=== PATIENT | female | born 1985 ===

== ENCOUNTER 2017-09-11 13:19 | Emergency (ER) | payer SELFPAY ==
[2017-09-11 13:20] VITALS: BMI 33.3
[2017-09-11 13:46] VITALS: BP 91/56; PULSE 73; RESP 16; TEMP 98.1; O2SAT 100
[2017-09-11] MEDS ORDERED: Sodium Chloride 0.9% 1,000 ML IV STA (14:31)
--- NOTE | 2017-09-11 14:46 | ED PDOC ---
HPI: Abdomen Time Seen by Provider: 09/11/17 14:29 Chief Complaint (Nursing): GI Problem Chief Complaint (Provider): Vomiting History Per: Patient History/Exam Limitations: no limitations Current Symptoms Are (Timing): Still Present Additional Complaint(s): Jailyn is a 31 y/o female, , approximately 16 weeks , who presents to the ED complaining of vomiting and epigastric pain. Patient states she rarely has abdominal pain and denies vaginal bleeding. She has had an ultrasound and care, all within normal limits according to patient. PMD: Lucy Doe Past Medical History Reviewed: Historical Data, Nursing Documentation, Vital Signs Vital Signs: Last Vital Signs Temp 98.1 F 09/11/17 13:41 Pulse 73 09/11/17 13:41 Resp 16 09/11/17 13:41 BP 91/56 L 09/11/17 13:41 Pulse Ox 100 09/11/17 16:54 - Medical History PMH: Denies: Chronic Kidney Disease - Family History Family History: States: Unknown Family Hx - Home Medications Home Medications: Ambulatory Orders Medication Instructions Recorded Ibuprofen [Advil] 100 mg PO PRN PRN 09/29/16 Ibuprofen [Motrin] 400 mg PO Q4 PRN 09/29/16 Calcium Carbonate [Tums] 1 - 2 tab PO Q6 PRN #1 bottle 09/11/17 Ondansetron ODT [Zofran ODT] 4 mg PO Q8 PRN #10 odt 09/11/17 - Allergies Allergies/Adverse Reactions: Allergies Allergy/AdvReac Type Severity Reaction Status Date / Time No Known Allergies Allergy Verified 09/11/17 13:41 Review of Systems ROS Statement: Except As Marked, All Systems Reviewed And Found Negative Gastrointestinal: Positive for: Vomiting, Abdominal Pain Genitourinary Female: Negative for: Vaginal Bleeding Physical Exam - Reviewed Nursing Documentation Reviewed: Yes Vital Signs Reviewed: Yes - Physical Exam Appears: Positive for: Well, Non-toxic, No Acute Distress Gastrointestinal/Abdominal: Positive for: Tenderness (epigastric, (-) RUQ tenderness) Neurologic/Psych: Positive for: Alert, Oriented - Laboratory Results Result Diagrams: 09/11/17 14:50 09/11/17 14:50 - ECG O2 Sat by Pulse Oximetry: 100 (RA) Pulse Ox Interpretation: Normal - Progress ED Course And Treament: ns 1 liter wide open reglan 10 mg i x 1 dose Patient feels improved and is hungry Eating food in ED Medical Decision Making Medical Decision Making: Time: 14:29 Initial Impression: Epigastric Pain Initial Plan: --Blood Type & Screen --Beta-HcG --CMP --Lipase --Magnesium --Urine Dip --CBC --Reglan --Urine Culture --Urinalysis --US OB Time: 16:15 Findings: There is a single living fetus in variable presentation. Anterior placenta. The placenta is not previa. Bilateral ovaries are not visualized. There are no adnexal masses or cysts evident. Cervix length measures approximately 5.1 cm. Measurements and calculations: Fetus has a composite sonographic age of 18 weeks 0 days. This calculation is based on the biparietal diameter, head circumference, abdominal circumference, and femur length. Estimated heart rate 157 beats per min. Impression: Single living fetus with a composite sonographic age of 18 weeks 0 days. Estimated heart rate 157 beats per min. Scribe Attestation: Documented by Ed Lamar, acting as a scribe for Gena Vazquez PA-C Provider Scribe Attestation: All medical record entries made by the Scribe were at my direction and personally dictated by me. I have reviewed the chart and agree that the record accurately reflects my personal performance of the history, physical exam, medical decision making, and the department course for this patient. I have also personally directed, reviewed, and agree with the discharge instructions and disposition. Disposition - Clinical Impression Clinical Impression: Hyperemesis arising during - Patient ED Disposition Is Patient to be Admitted: No - Disposition Disposition: Routine/Home Disposition Time: 16:53 Condition: FAIR Prescriptions: Calcium Carbonate [Tums] 1 - 2 tab PO Q6 PRN #1 bottle PRN Reason: Pain, Moderate (4-7) Ondansetron ODT [Zofran ODT] 4 mg PO Q8 PRN #10 odt PRN Reason: Nausea/Vomiting Instructions: Hyperemesis Gravidarum (ED), Diet for Ulcers and Gastritis (ED) Forms: [facility] (Maldivian) Print Language: TAIWANESE
[2017-09-11 15:08] LABS: BASO % 0.2 % (0.0-2.0); EOS % 0.5 % (0.0-4.0); HEMOGLOBIN 12.2 g/dL (12.0-16.0); LYMPH % 12.6 % (20.0-40.0); MEAN CELL VOLUME 88.5 fl (81.0-99.0); MEAN CORPUSCULAR HEMOGLOBIN 31.4 pg (27.0-31.0); MEAN CORPUSCULAR HGB CONC 35.4 g/dL (33.0-37.0); MEAN PLATELET VOLUME 7.8 fl (7.2-11.7); MONO # 0.5 K/uL (0.0-0.8); MONO % 6.3 % (0.0-10.0); NEUT # 6.5 K/uL (1.8-7.0); NEUT % 80.4 % (50.0-75.0); RBC 3.89 Mil/uL (3.80-5.20); RED CELL DISTRIBUTION WIDTH 12.6 % (11.5-14.5)
[2017-09-11 15:17] LABS: ALB/GLOB RATIO 1.1 (1.0-2.1); ALBUMIN 3.6 g/dL (3.5-5.0); ALT/SGPT 32 U/L (9-52); AST/SGOT 30 U/L (14-36); BLOOD UREA NITROGEN 7 mg/dl (7-17); CALCIUM 9.1 mg/dL (8.4-10.2); GFR AFRICAN-AMERICAN > 60; GFR NON-AFRICAN AMERICAN > 60; MAGNESIUM 1.8 MG/DL (1.6-2.3)
--- NOTE | 2017-09-11 16:17 | US ---
OB , limited Comparison: Transvaginal pelvic ultrasound performed 10/27/16 Technique: Real-time ultrasound was performed through the pelvis. Findings: There is a single living fetus in variable presentation. Anterior placenta. The placenta is not previa. Bilateral ovaries are not visualized. There are no adnexal masses or cysts evident. Cervix length measures approximately 5.1 cm. Measurements and calculations: Fetus has a composite sonographic age of 18 weeks 0 days. This calculation is based on the biparietal diameter, head circumference, abdominal circumference, and femur length. Estimated heart rate 157 beats per min. Impression: Single living fetus with a composite sonographic age of 18 weeks 0 days. Estimated heart rate 157 beats per min.
[2017-09-11 16:49] LABS: SQUAMOUS EPITHIAL 4 /hpf (0-5); URINE BACTERIA RARE (<OCC); URINE BILIRUBIN NEGATIVE (NEGATIVE); URINE BLOOD NEGATIVE (NEGATIVE); URINE CLARITY SLIGHTY-CLOUDY (Clear); URINE COLOR YELLOW (YELLOW); URINE GLUCOSE (UA) NEG (Normal); URINE LEUKOCYTE ESTERASE NEG Leu/uL (Negative); URINE NITRATE NEGATIVE (NEGATIVE); URINE PROTEIN NEGATIVE (NEGATIVE)
== END 2017-09-11 18:44 | disposition home or self-care (01) ==
LOC: H.ER 13:19
DX: O21.0 Mild hyperemesis gravidarum (principal); Z3A.18 18 weeks gestation of pregnancy
CPT/HCPCS: 76815; 80053; 81003; 83690; 83735; 84702; 85025; 86850; 86900; 87086; 96374; 99284; J2765; J7040

== ENCOUNTER 2017-11-14 14:30 | Emergency (ER) | payer SELFPAY ==
[2017-11-14 14:30] VITALS: BMI 33.3
--- NOTE | 2017-11-14 14:51 | ED PDOC ---
HPI: CCC, URI, Sore Throat Time Seen by Provider: 11/14/17 14:44 Chief Complaint (Nursing): ENT Problem Chief Complaint (Provider): left ear pain History Per: Patient Onset/Duration Of Symptoms: Days (x 2) Current Symptoms Are (Timing): Still Present Additional Complaint(s): 32 y/o female, currently 26 weeks , presents to the ED complaining of left ear pain that started yesterday. Patient denies fever, headache, dizziness. No abd pain or vaginal bleeding. PMD: None Past Medical History Reviewed: Historical Data, Nursing Documentation, Vital Signs Vital Signs: Last Vital Signs Temp 98.5 F 11/14/17 14:39 Pulse 68 11/14/17 14:39 Resp 16 11/14/17 14:39 BP 112/76 11/14/17 14:39 Pulse Ox 100 11/14/17 15:06 - Medical History PMH: No Chronic Diseases - Surgical History Surgical History: - Family History Family History: States: No Known Family Hx - Living Arrangements Living Arrangements: With Family - Social History Current smoker - smoking cessation education provided: No Alcohol: None Drugs: Denies - Home Medications Home Medications: Ambulatory Orders Medication Instructions Recorded Ibuprofen [Advil] 100 mg PO PRN PRN 09/29/16 Ibuprofen [Motrin] 400 mg PO Q4 PRN 09/29/16 Calcium Carbonate [Tums] 1 - 2 tab PO Q6 PRN #1 bottle 09/11/17 Ondansetron ODT [Zofran ODT] 4 mg PO Q8 PRN #10 odt 09/11/17 Acetaminophen [Tylenol 325mg tab] 650 mg PO Q4 PRN #1 bottle 11/14/17 Amoxicillin 875 mg PO BID #14 tab 11/14/17 - Allergies Allergies/Adverse Reactions: Allergies Allergy/AdvReac Type Severity Reaction Status Date / Time No Known Allergies Allergy Verified 09/11/17 13:41 Review of Systems ROS Statement: Except As Marked, All Systems Reviewed And Found Negative Constitutional: Negative for: Fever ENT: Positive for: Ear Pain (left) Respiratory: Negative for: Cough Gastrointestinal: Negative for: Nausea, Vomiting, Abdominal Pain, Diarrhea Neurological: Negative for: Headache, Dizziness Physical Exam - Reviewed Nursing Documentation Reviewed: Yes Vital Signs Reviewed: Yes - Physical Exam Appears: Positive for: Well, Non-toxic, No Acute Distress Skin: Positive for: Normal Color, Warm. Negative for: Rash Eye Exam: Positive for: EOMI, PERRL ENT: Positive for: TM Is/Are (Left TM is bulging and erythematous with obscured landmarks, consistent with otitis media, no perforation or rupture, right TM is normal) Cardiovascular/Chest: Positive for: Regular Rate, Rhythm Respiratory: Positive for: Normal Breath Sounds Neurologic/Psych: Positive for: Alert, Oriented - ECG O2 Sat by Pulse Oximetry: 100 (RA) Pulse Ox Interpretation: Normal Medical Decision Making Medical Decision Making: Time: 14:51 Initial Impression: 32 y/o female with otitis media Initial Plan: --Tylenol PO 1 gram given in ED --Patient will be discharged with rx for Tylenol and Amoxicillin. Follow up with PMD/OB. Scribe Attestation: Documented by Ed Lamar, acting as a scribe for Miriam Harrison PA-C. Provider Scribe Attestation: All medical record entries made by the Scribe were at my direction and personally dictated by me. I have reviewed the chart and agree that the record accurately reflects my personal performance of the history, physical exam, medical decision making, and the department course for this patient. I have also personally directed, reviewed, and agree with the discharge instructions and disposition. Disposition - Clinical Impression Clinical Impression: Otitis media - Patient ED Disposition Is Patient to be Admitted: No Counseled Patient/Family Regarding: Diagnosis, Need For Followup, Rx Given - Disposition [facility] Disposition: Routine/Home Disposition Time: 14:47 Condition: STABLE Additional Instructions: Take rx meds as directed. Follow up with clinic. Prescriptions: Acetaminophen [Tylenol 325mg tab] 650 mg PO Q4 PRN #1 bottle PRN Reason: Pain, Moderate (4-7) Amoxicillin 875 mg PO BID #14 tab Instructions: Ear Infections (Otitis Media) Forms: [facility] (Syriac) Print Language: GERMAN
[2017-11-14 14:52] VITALS: BP 112/76; PULSE 68; RESP 16; TEMP 98.5; O2SAT 100
== END 2017-11-14 15:38 | disposition home or self-care (01) ==
LOC: H.ER 14:30
DX: H66.90 Otitis media, unspecified, unspecified ear (principal); Z3A.26 26 weeks gestation of pregnancy

== ENCOUNTER 2017-12-19 21:21 | Observation (INO) | payer SELFPAY ==
[2017-12-19 22:43] VITALS: BMI 34.0
[2017-12-19 23:35] LABS: SQUAMOUS EPITHIAL 7 /hpf (0-5); URINE BACTERIA OCC (<OCC); URINE BILIRUBIN NEGATIVE (NEGATIVE); URINE BLOOD SMALL (NEGATIVE); URINE CLARITY TURBID (Clear); URINE COLOR YELLOW (YELLOW); URINE GLUCOSE (UA) NEG (Normal); URINE LEUKOCYTE ESTERASE LARGE Leu/uL (Negative); URINE PROTEIN 100 mg/dL (NEGATIVE); URINE UROBILINOGEN 0.2-1.0 mg/dL (0.2-1.0); WBC CLUMPS MANY /hpf
[2017-12-20 00:16] LABS: BASO % 0.2 % (0.0-2.0); EOS # 0.1 K/uL (0.0-0.7); EOS % 0.6 % (0.0-4.0); HEMOGLOBIN 11.5 g/dL (12.0-16.0); LYMPH # 1.6 K/uL (1.0-4.3); LYMPH % 12.8 % (20.0-40.0); MEAN CELL VOLUME 89.5 fl (81.0-99.0); MEAN CORPUSCULAR HEMOGLOBIN 31.7 pg (27.0-31.0); MEAN CORPUSCULAR HGB CONC 35.4 g/dL (33.0-37.0); MONO # 0.9 K/uL (0.0-0.8); MONO % 7.4 % (0.0-10.0); NEUT # 10.1 K/uL (1.8-7.0); RBC 3.62 Mil/uL (3.80-5.20); RED CELL DISTRIBUTION WIDTH 12.1 % (11.5-14.5); WHITE BLOOD COUNT 12.7 K/uL (4.8-10.8)
[2017-12-20] MEDS ORDERED: Lactated Ringer's 1,000 ML IV SCH (01:15)
--- NOTE | 2017-12-20 01:21 | CP.PCM.HP ---
<Anibal Stephenson - Last Filed: 12/20/17 01:34> History of Present Illness - History of Present Illness History of Present Illness: Pt is a 32 y/o female with IUP 32.5 wks (CORAL 02/09) presenting with complaints of R. Flank pain x1 day. She describes pain as 10/10 in intensity, constant, sharp, non radiating, and partially alleviated with Motrin. In addition, she also reports frequent urination and mild dysuria for the past 24 hours. Denies fever/chills, n/v, vb, lof, ctx. +FM PNC: CFH. Labs reviewed unremarkable. Plan for repeat C at 39wks OBHx: 1 prior C section in [place] for unreassuring FHR, FT. PMHX: denies Meds: PNV Allergies: NKDA Social: Zay habits x3 [facility] Course: Vitals stable, afebrile Physical exam notable for Suprapubic and R. CVA tenderness Tylenol 650mg po x1 CBC: WBC 12.7 U/A: +Nitrate, Large LES Present on Admission - Present on Admission Any Indicators Present on Admission: No History of DVT/PE: No History of Uncontrolled Diabetes: No Urinary Catheter: No Decubitus Ulcer Present: No Past Patient History - Past Medical History & Family History Past Medical History?: No - Past Social History Smoking Status: Never Smoked - CARDIAC Hx Cardiac Disorders: No - PULMONARY Hx Respiratory Disorders: No - NEUROLOGICAL Hx Neurological Disorder: No - HEENT Hx HEENT Problems: No - RENAL Hx Chronic Kidney Disease: No - ENDOCRINE/METABOLIC Hx Endocrine Disorders: No - HEMATOLOGICAL/ONCOLOGICAL Hx Blood Disorders: No - INTEGUMENTARY Hx Dermatological Problems: No - MUSCULOSKELETAL/RHEUMATOLOGICAL Hx Musculoskeletal Disorders: No - GASTROINTESTINAL Hx Gastrointestinal Disorders: No - GENITOURINARY/GYNECOLOGICAL Hx Genitourinary Disorders: No - PSYCHIATRIC Hx Psychophysiologic Disorder: No Hx Emotional Abuse: No Hx Physical Abuse: No Hx Substance Use: No - SURGICAL HISTORY Hx Surgeries: Yes Hx Section: Yes (x1) - ANESTHESIA Hx Anesthesia: Yes Hx Anesthesia Reactions: No Hx Malignant Hyperthermia: No Meds Allergies/Adverse Reactions: Allergies Allergy/AdvReac Type Severity Reaction Status Date / Time No Known Allergies Allergy Verified 09/11/17 13:41 Physical Exam - Constitutional Appears: Well, Non-toxic Additional comments: Mild distress - ENT Exam ENT Exam: Mucous Membranes Moist - Respiratory Exam Respiratory Exam: Clear to Auscultation Bilateral - Cardiovascular Exam Cardiovascular Exam: REGULAR RHYTHM, +S1, +S2. absent: Systolic Murmur - GI/Abdominal Exam GI & Abdominal Exam: Normal Bowel Sounds, Soft, Tenderness (Suprapubic tenderness). absent: Distended, Guarding, Rigid - Back Exam Back exam: CVA tenderness (R) - Neurological Exam Neurological exam: Alert, Oriented x3 - Psychiatric Exam Psychiatric exam: Normal Affect - Skin Skin Exam: Normal Color Results - Labs Result Diagrams: 12/19/17 23:14 Labs: Laboratory Results - last 24 hr 12/19/17 12/19/17 23:14 23:14 WBC 12.7 H D RBC 3.62 L Hgb 11.5 L Hct 32.4 L MCV 89.5 D MCH 31.7 H MCHC 35.4 RDW 12.1 Plt Count 256 MPV 8.0 Neut % (Auto) 79.0 H Lymph % (Auto) 12.8 L [place] % (Auto) 7.4 Eos % (Auto) 0.6 Baso % (Auto) 0.2 Neut # (Auto) 10.1 H Lymph # (Auto) 1.6 [place] # (Auto) 0.9 H Eos # (Auto) 0.1 Baso # (Auto) 0.0 Urine Color Yellow Urine Clarity Turbid Urine pH 6.0 Ur Specific [place] 1.024 Urine Protein 100 Urine Glucose (UA) Neg Urine Ketones Negative Urine Blood Small Urine Nitrate Positive H Urine Bilirubin Negative Urine Urobilinogen 0.2-1.0 Ur Leukocyte Esterase Large Urine RBC (Auto) 60 H Urine WBC Clumps (Auto) Many H Urine Microscopic WBC 805 H Ur Squamous Epith Cells 7 H Urine Bacteria Occ H Urine Yeast (Budding) Mod H Assessment & Plan - Assessment and Plan (Free Text) Assessment: Pt is a 32 y/o female with IUP 32.5 wks admitted for Pyelonephritis. #Pyelonephritis -Dysuria, R. Flank Pain, R. CVA tenderness -Afebrile -Leukocytosis 12.7, no bandemia -Ceftriaxone 1gm, IVPB 0.9 NS daily -Tylenol 650 po for pain -Notify MD if temp >100.4F -F/U UCx #Diet -Regular Stable Full Code Discussed case with OB Hospitalist, Dr. Knapp <Marc Knapp - Last Filed: 12/20/17 07:18> Results - Vital Signs Recent Vital Signs: Last Vital Signs Temp Pulse 78 12/20/17 01:45 Resp 18 12/20/17 01:45 BP 96/52 L 12/20/17 01:45 Pulse Ox - Labs Result Diagrams: 12/19/17 23:14 Labs: Laboratory Results - last 24 hr 12/19/17 12/19/17 23:14 23:14 WBC 12.7 H D RBC 3.62 L Hgb 11.5 L Hct 32.4 L MCV 89.5 D MCH 31.7 H MCHC 35.4 RDW 12.1 Plt Count 256 MPV 8.0 Neut % (Auto) 79.0 H Lymph % (Auto) 12.8 L [place] % (Auto) 7.4 Eos % (Auto) 0.6 Baso % (Auto) 0.2 Neut # (Auto) 10.1 H Lymph # (Auto) 1.6 [place] # (Auto) 0.9 H Eos # (Auto) 0.1 Baso # (Auto) 0.0 Urine Color Yellow Urine Clarity Turbid Urine pH 6.0 Ur Specific [place] 1.024 Urine Protein 100 Urine Glucose (UA) Neg Urine Ketones Negative Urine Blood Small Urine Nitrate Positive H Urine Bilirubin Negative Urine Urobilinogen 0.2-1.0 Ur Leukocyte Esterase Large Urine RBC (Auto) 60 H Urine WBC Clumps (Auto) Many H Urine Microscopic WBC 805 H Ur Squamous Epith Cells 7 H Urine Bacteria Occ H Urine Yeast (Budding) Mod H Assessment & Plan - Assessment and Plan (Free Text) Plan: With PGY1, I saw and examined this patient. Agree with note. Condition, eval and treatment plan discussed with pt. Her questions answered. - Date & Time Date: 12/20/17 Time: 07:15
[2017-12-20 04:02] VITALS: PULSE 78
--- NOTE | 2017-12-20 07:19 | OBADHP ---
Datetime: 12/19/2017 22:31 Admit Comment, IP Provider: Pt is a 32 y/o female with IUP 32.4 wks (CORAL 02/09) presents to [facility] with complaints of R. Flank pain x1 day. She describes pain as 10/10 in intenstity, constant, sharp, non radiating, and partially alleviated with Motrin. In addition, she also reports frequent urinatio n and mild dysuria for the past 24 hours. Denies fever/chills, n/v, vb, lof, ctx. +FM PNC: CFH. Labs reviewed unremarkable. Plan for repeat C at 39wks OBHx: 1 prior C section in [place] for unreassuring FHR, FT. PMHX: denies Meds: PNV Allergies: NKDA Social: Zay habits x3 Maternal Vitals: BP 107/52, HR 78, Afebrile General: Mild distress noted Cardio: RRR, no murmurs Lungs: CTABL Abdomen: Gravid, +Suprapubic tenderness. +R. Flank tenderness Ext: no edema FHR: 155, reactive, no decels A: IUP 32.4wks with dysuria and R. Flank pain x1 day, exam notable for suprapubic and R. CVA tende rness P: UTI in . CBC, Urinalysis w/ reflex Ucx. Tylenol for pain. Continuous monitoring. Discussed Case with Dr. Ra Warren, PGY1 With PGY1, I saw and examined this patient. Agree with note. Condition, eval and treatment plan discussed with pt. Her questions answered. Extremities - PN: Normal Abdomen - PN: Abnormal Back - PN: Abnormal Lungs - PN: Normal Heart - PN: Normal General - PN: Normal FHR - Baseline A Provider: 155 Comments, ACOG Physical Exam: + R. Flank tenderness +Suprapubic Tenderness Vital Signs Provider: Reviewed; Within Normal Limits IP Chief Complaint: Other EGA AdmitDate IP: 32.4 IP Adm Impression: , intrauterine IP Admit Plan: Observation/Evaluation
--- NOTE | 2017-12-20 12:05 | OBDCSUM ---
Datetime: 12/20/2017 12:05 Discharged to, Provider: Home Follow up at, Provider: clinic Disch Instr Activity: Normal activity Disch Instr Diet: Regular Discharge Instructions, Provider: Routine instructions given Discharge Time: 12/20/2017 12:05 Follow up in weeks, Provider: this week Disch Referrals: None Contraception discussed, Prov: Yes Discharge Diagnosis Prov Other: pyelonephritis
--- NOTE | 2017-12-20 12:05 | OBPN ---
Datetime: 12/20/2017 12:02 FHR - Baseline A Provider: 150 IP Progress Note Comment: Patient evaluated this morning, comfortable, afebrile. Patient has no OB c omplaints, no vaginal bleeding, no leaking, +FM, no ctxns, no dysuria, no flank discomfort. Pt tolera ting PO diet, no vomiting. Will discharge patient home. Script given for augmentin for 10 days and Ma crobid daily for the duration of the . All instructions explained to the patient with her co nfirming she understood. Recommended patient make appt this week in clinic Vital Signs Provider: Reviewed; Within Normal Limits NICHD Variability Prov Fetus A: Moderate 6-25bpm
[2017-12-20 18:34] VITALS: BP 98/52; RESP 20; TEMP 98; O2SAT 100
== END 2017-12-20 14:15 | disposition home or self-care (01) ==
LOC: H.EROB2 21:21 → H.OB/GYN 12-20 01:04
PROVIDERS: ADMIT Obstetrics & Gynecology; ATTEND Obstetrics & Gynecology
DX: O23.03 Infections of kidney in pregnancy, third trimester (principal); N12 Tubulo-interstitial nephritis, not specified as acute or chronic; Z3A.32 32 weeks gestation of pregnancy
CPT/HCPCS: 81003; 85025; 87086; G0378; J0696; J7120

== ENCOUNTER 2018-02-01 14:33 | Inpatient (IN) | payer MEDICAID, SELFPAY ==
[2018-02-01 14:38] VITALS: BMI 33.6
[2018-02-01] MEDS ORDERED: Oxytocin 30 units/LR 500ML 30 U/500 ML BAG IV ONE ×2 (14:57→18:00)
[2018-02-01] MEDS ORDERED: Lactated Ringer's 2,000 ML IV ONE (14:57)
[2018-02-01] MEDS ORDERED: ceFAZolin IV 2 gm in Dextrose 2 GM/50 ML BAG IVPB ONE (15:08)
[2018-02-01 15:51] LABS: BASO % 0.4 % (0.0-2.0); EOS # 0.2 K/uL (0.0-0.7); EOS % 2.1 % (0.0-4.0); HEMOGLOBIN 11.9 g/dL (12.0-16.0); LYMPH # 1.4 K/uL (1.0-4.3); LYMPH % 19.1 % (20.0-40.0); MEAN CELL VOLUME 88.8 fl (81.0-99.0); MEAN CORPUSCULAR HEMOGLOBIN 30.1 pg (27.0-31.0); MEAN PLATELET VOLUME 8.3 fl (7.2-11.7); MONO # 0.5 K/uL (0.0-0.8); NEUT # 5.3 K/uL (1.8-7.0); NEUT % 71.4 % (50.0-75.0); NRBC % 0.1 % (0.0-0.0); RBC 3.95 Mil/uL (3.80-5.20); WHITE BLOOD COUNT 7.4 K/uL (4.8-10.8)
[2018-02-01] MEDS ORDERED: Lactated Ringer's 1,000 ML IV SCH ×2 (16:00→19:15)
[2018-02-01] MEDS ORDERED: Morphine 1 mg/ml preservative-free Inj(Duramorph) ONE ×2 (16:07→16:08)
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
[2018-02-01] MEDS ORDERED: Morphine 1 mg/ml preservative-free Inj(Duramorph) IT ONE (18:49)
[2018-02-01] MEDS ORDERED: DiphenhydrAMINE 50 mg/ml Inj IVP PRN (18:49)
[2018-02-01] MEDS ORDERED: Naloxone 0.4 mg/ml Inj (Adult) IVP PRN (18:49)
--- NOTE | 2018-02-01 19:11 | OBDS ---
DELIVERY PERSONNEL Delivery Doctor: Arie Garcia MD Scrub Nurse: Kate Garcia Jointer Operator: Jenna Lujan RN Anesthesiologist: Dr. Goodwin Resident: Dr. Green MATERNAL INFORMATION Delivery Anesthesia: Spinal Medications in Delivery: Pitocin 30 units Estimated Blood Loss (ml): 800 Placenta Cultured: No Maternal Complications: None Provider Comments: See Operative notes LABOR SUMMARY EDC: 02/09/2018 00:00 No. Babies in Womb: 1 Attempted: No Labor Anesthesia: None LABOR INFORMATION Reason for Induction: Not Applicable Oxytocin: N/A Group B Beta Strep: Negative Steroids Given: None Reason Steroids Not Administered: Not Applicable MEMBRANES Membranes Rupture Method: Artificial Amniotic Fluid Color: Clear Amniotic Fluid Amount: Moderate Amniotic Fluid Odor: Normal STAGES OF LABOR Stage 3 hrs: 0 Stage 3 min: 1 CSECTION DELIVERY Primary Indication: Repeat Elective Secondary Indication: Repeat Elective CSection Urgency: Elective CSection Incidence: Repeat Labor: No Labor Elective: Elective CSection Incision: Classical BABY A INFORMATION Delivery Date/Time: 02/01/2018 18:16 Method of Delivery: Born in Route : No : N/A Forceps: N/A Vacuum Extraction: N/A Shoulder Dystocia : No SHOULDER DYSTOCIA BABY A Infant Delivery Date/Time: 02/01/2018 18:16 PRESENTATION/POSITION BABY A Presentation: Cephalic Cephalic Presentation: Vertex Breech Presentation: N/A PLACENTA INFORMATION BABY A Placenta Delivery Time : 02/01/2018 18:17 Placenta Method of Delivery: Spontaneous Placenta Status: Delivered SCORES BABY A Heart Rate 1 min: >100 bpm Resp Effort 1 min: Good Cry Reflex Irritability 1 min: Cough or Sneeze or Pulls Away Muscle Tone 1 min: Some Flexion of Extremities Color 1 min: Body [place], Extremities Blue Resuscitation Effort 1 min: Tactile Stimulation; Oxygen SCORE 1 MIN: 8 Heart Rate 5 min: >100 bpm Resp Effort 5 min: Good Cry Reflex Irritability 5 min: Cough or Sneeze or Pulls Away Muscle Tone 5 min: Some Flexion of Extremities Color 5 min: Completely [place] Resuscitation Effort 5 min: Oxygen SCORE 5 MIN: 9 INFORMATION BABY A Gestational Age at Delivery: 38.0 Gestational Status: Term Outcome : Liveborn Condition : Stable Infant Sex: Female IDENTIFICATION/MEDS BABY A ID Band Number: [id number] ID Band Location: Left Leg; Left Arm WEIGHT/LENGTH BABY A Infant Birthweight (gms): 3625 Infant Weight (lb): 8 Infant Weight (oz): 0 CORD INFORMATION BABY A No. Cord Vessels: 3 Nuchal Cord : N/A Cord Blood Taken: N/A Suction: None ASSESSMENT BABY A Complications: Meconium Physical Findings at Delivery: Within Normal Limits Respirations: Appears Normal Audit Reviewer/ALS Called : No Care By: Dr. Myers/Sridevi Transferred To: [facility]
[2018-02-01 19:43] VITALS: O2SAT 99
[2018-02-02] MEDS ORDERED: Naloxone 0.4 mg/ml Inj (Adult) IVP PRN (06:19)
[2018-02-02] MEDS ORDERED: DiphenhydrAMINE 50 mg/ml Inj IVP PRN (06:19)
[2018-02-02 06:38] LABS: HEMOGLOBIN 9.5 g/dL (12.0-16.0); MEAN CELL VOLUME 88.8 fl (81.0-99.0); MEAN CORPUSCULAR HEMOGLOBIN 30.6 pg (27.0-31.0); MEAN CORPUSCULAR HGB CONC 34.5 g/dL (33.0-37.0); RBC 3.09 Mil/uL (3.80-5.20); RED CELL DISTRIBUTION WIDTH 12.1 % (11.5-14.5); WHITE BLOOD COUNT 10.8 K/uL (4.8-10.8)
--- NOTE | 2018-02-02 08:42 | OBPPN ---
Datetime: 02/02/2018 06:31 PP Pain Prov: Within normal limits PP Nausea Prov: Denies PP Flatus Prov: No PP BM Prov: No PP Breasts Prov: Not Done PP Heart Prov: Normal PP Lungs Prov: Normal PP Abdomen/Uterus Prov: Normal PP Lochia Prov: Not Done PP Vulva/Perineum Prov: Not Done PP CVA Tenderness Prov: Normal PP Extremities Prov: Normal PP C/S Incision Prov: Normal PP Impression Prov: Normal progression PP Plan Prov: Continue present management PP Progress Note Prov: doing well ambulate analgesia, d/c irvin , IVF Vital Signs Provider PP: Reviewed
[2018-02-02] MEDS ORDERED: Multivitamin With Minerals Tab PO SCH ×2 (09:00)
[2018-02-03] MEDS: Prenatal Multivit/Folic Acid/Iron Tab PO SCH (08:57)
--- NOTE | 2018-02-03 10:01 | OBPPN ---
Datetime: 02/03/2018 07:02 PP Pain Prov: Within normal limits PP Nausea Prov: Denies PP Flatus Prov: No PP BM Prov: No PP Heart Prov: Normal PP Lungs Prov: Normal PP Abdomen/Uterus Prov: Normal PP Lochia Prov: Normal PP Extremities Prov: Normal PP Impression Prov: Normal progression PP Plan Prov: Continue present management; consult PP Progress Note Prov: 32 y/o [id number] 2 s/p . Patient was seen and examined this AM. The re were no significant events overnight. Mild pain well controlled with medication. Patient has been breast feeding and using formula supplementation w/o difficulty. She is on regular diet w/o and compl aints. Patient has not passed flatus or bm, but has been voiding without difficulty. Incision is alek an, and without exudate. Patient denied any fever, chills, headache, c/p or shortness of breath. PE: General: Well-appearing female Cardio: s1 s2 auscultated, no murmurs Resp: B/L breath sounds, no wheeze auscultated Abd: bowel sounds auscultated Ext: non-tender Neuro/Psych: A _ O x 3 A/P 1. Continue /bottle feeding. 2. Ambulation encouraged. 3. Ibuprofen 600mg PO Q6H PRN for pain. Case discussed with OB Attending. Elena Dodge, PGY-1 Attending addendum: I saw and examined the patient myself this morning. I reviewed the resident note above and agree w ith findings and management. In addition, patient is having great difficulty with , newb orn has tongue tie and is supplementing a lot. I asked for patient to have a breast pump and discusse d supply/demand w/ patient and possible frenulectomy outpatient. I adminsitered EPDS in [place] and patient is low risk, score of 4, has support at home, no need f or social worker health services consult. Anticipate DC home tomorrow. Fany Hernandez MD Vital Signs Provider PP: Reviewed; Within Normal Limits
--- NOTE | 2018-02-04 07:02 | OP ---
PROCEDURE DATE: 02/01/2018 PREOPERATIVE DIAGNOSIS: Term with previous section with vertical skin incision. POSTOPERATIVE DIAGNOSIS: Term with previous section with vertical skin incision, delivered. PROCEDURE: Repeat section. SURGEON: Jose Ames MD LINE MAINTENANCE: Telly Bojorquez MD ESTIMATED BLOOD LOSS: 800 mL. URINE OUTPUT: 200 mL, clear at the end of the procedure. ANESTHESIA: Spinal. ANESTHESIOLOGIST: Dr. Goodwin. INTRAVENOUS FLUIDS: 2600 mL lactated Ringer's. FINDINGS: A live female with Apgars of 8 and 9, weight 3627 grams, delivered in vertex presentation. Amniotic fluid clear. Vertical skin incision noted. Grossly normal tubes, ovaries, and uterus. DESCRIPTION OF PROCEDURE: The patient was taken to the operating room and given spinal anesthesia without difficulty. She was then prepped and draped in the normal sterile fashion in the dorsal supine position with a leftward tilt. A vertical skin incision was then made first by removing the previous scar with the scalpel and Bovie. The Bovie was then used to extend the skin incision down to the underlying fascia. The fascia was then incised and extended superiorly and inferiorly. The rectus muscles were then dissected, and the peritoneum was identified and entered with Metzenbaum scissors. This incision was then extended laterally, superiorly and inferiorly. The bladder blade was inserted. The vesicouterine peritoneum was identified, tented up, and entered with Metzenbaum scissors. This incision was then extended laterally and the bladder flap was created digitally. The bladder blade was reinserted and the lower uterine segment was incised in a transverse fashion with the scalpel. This incision was then extended laterally using the bandage scissors, and the infant was then delivered in vertex presentation atraumatically. The nose and mouth were suctioned on the abdomen. The cord was doubly clamped and cut, and the was handed off to awaiting soundscriber mechanic. Cord blood was then taken. The placenta was extracted manually and intact. The uterus was exteriorized and cleared of all clots and debris. The uterine incision was then closed with 1 Vicryl in a running locked fashion and a second layer was then placed with the same suture for imbrication and good hemostasis was noted. Copious irrigation was then performed. The uterus was returned to the abdomen. The gutters were cleared off all clots . Inspection of the uterine incision again revealed good hemostasis. The peritoneum was then closed with 2-0 Vicryl in a running locked fashion. Following this, the muscle and the fascia was then reapproximated with 1 PDS in a running fashion from superiorly and then inferiorly at the midline. Good hemostasis was noted. The Bovie was then used to obtain good hemostasis on the subcutaneous fat and this layer was then closed with 5 interrupted stitches using a 3-0 plain suture. The skin was then closed with olayinka, and the incision was covered with sterile dressing. The patient tolerated the procedure well. Sponge, lap and needle counts were correct x4. Ancef 2 gm was given preoperatively. The patient was taken to the recovery room in stable condition. There was no injury to the bladder, bowel, ureter, or baby. Due to the nature of the case, an digital assistant was requested. My digital assistant, Dr. Bojorquez, was present for the entire procedure from the initial incision to the patient's transfer to the recovery room. He assisted with providing good exposure to decrease blood loss and ensure good hemostasis. Due to the patient's vertical skin incision, his assistance was needed for entry into the abdominal wall. He assisted with delivery of the baby and closure of all layers of the abdomen including the peritoneum, muscle, fascia, subcutaneous fat layer and skin. His assistance was vital to performing this procedure. Jose Ames MD
[2018-02-04] MEDS: Prenatal Multivit/Folic Acid/Iron Tab PO SCH (08:02)
--- NOTE | 2018-02-04 10:54 | OBDCSUM ---
Datetime: 02/04/2018 10:52 Discharged to, Provider: Home Follow up at, Provider: Dr. Meza Disch Instr Activity: Normal activity Disch Instr Diet: Regular Discharge Instructions, Provider: Routine instructions given Discharge Diagnosis, Provider: Term Delivered Discharge Time: 02/04/2018 10:45 Follow up in weeks, Provider: 1-2 wks Disch Referrals: None Contraception discussed, Prov: Yes Disch Activity Restrictions: No lifting; No driving; No sexual activity; Nothing in vagina - Interco urse, tampons, douche Discharge Diagnosis Prov Other: c/s repeat Contraception after Delivery: Undecided Datetime: 12/20/2017 12:05 Discharge Diagnosis, Provider: Term Delivered Disch Activity Restrictions: No lifting; Minimize stair-climbing; No sexual activity Discharge Comment, Provider: 1. encouraged. 2. Ibuprofen as needed for moderate pain, and Percocet as needed for severe pain. (Please avoid dr baker or operating machinery while on Percocet because it may cause drowsiness). 3. Continue walking as much as tolerated. 4. Please plan follow up visit in 3-7 days with city designer. 5. Please plan visit in 6 weeks with your OB. 6. No heavy lifting or anything in the vagina for 6 weeks. 7. Please avoid stairs if possible. 8. If you develop severe or worsening pain, please go to the ED. Elena Dodge, PGY-1
--- NOTE | 2018-02-04 10:54 | OBPPN ---
Datetime: 02/04/2018 06:29 PP Pain Prov: Within normal limits PP Nausea Prov: Denies PP Flatus Prov: Yes PP BM Prov: No PP Breasts Prov: Normal PP Heart Prov: Normal PP Lungs Prov: Normal PP Abdomen/Uterus Prov: Normal PP Lochia Prov: Normal PP CVA Tenderness Prov: Normal PP Extremities Prov: Normal PP C/S Incision Prov: Normal PP Progress Prov: Normal PP Impression Prov: Normal progression PP Plan Prov: Discharge PP Progress Note Prov: Cyracom- [id number] 32 y/o POD 3 s/p . Patient was seen and examined this AM. Pain well controlled wi th medication. Patient is continuing breast feeding with formula supplementation w/o difficulty. She is on regular diet w/o complaints. Lochia is like menses. Patient + flatus, but - BM, but has been v oiding w/o difficulty. Patient stated incision had minimal discharge early yesterday afternoon, but r eports site has been dry since about 7pm 02/03/2018. Patient denied any fever, chills, headache, c/p or shortness of breath. PE: General: Well-appearing female, sitting upright Cardio: s1 s2 auscultated, no murmurs Resp: B/L breath sounds, no wheeze auscultated Abd: bowel sounds auscultated, incision site clean, and dry with no discharge visualized Back: No CVA tenderness Ext: non-tender Neuro: A _ O x 3 A/P 1.Continue as tolerated. 2.Ambulation encouraged. 3.Ibuprofen 600mg PO Q6H PRN for pain. Case discussed with OB Attending. Elena Dodge, PGY-1 Attending addendum: I examined the patient myself at bedside this morning. I reveiwed the resident note above and blessing phipps with findings and management. Patient to have glycerin supp, abd exam wnl, may DC home today. f/u with Dr. Meza for wound check in 1-2weeks. f/u with Dr. Hernandez in 4-6wks Vital Signs Provider PP: Reviewed; Within Normal Limits
[2018-02-04 23:23] VITALS: BP 113/70; PULSE 65; RESP 20; TEMP 98.7
== END 2018-02-04 15:40 | disposition home or self-care (01) | DRG 766 ==
LOC: H.L&D 15:03 → H.OB/GYN 21:22
PROVIDERS: ADMIT Obstetrics & Gynecology; ATTEND Obstetrics & Gynecology
PROC: 4A1HXCZ Monitoring of Products of Conception, Cardiac Rate, External Approach (ICD-10-PCS; principal; 2018-02-01)
PROC: 10D00Z1 Extraction of Products of Conception, Low, Open Approach (ICD-10-PCS; 2018-02-01)
DX: O34.211 Maternal care for low transverse scar from previous cesarean delivery (principal); N85.8 Other specified noninflammatory disorders of uterus; Z3A.38 38 weeks gestation of pregnancy; Z37.0 Single live birth; Z91.410 Personal history of adult physical and sexual abuse